=== PATIENT | male | born 1940 | race Caucasian/White ===

== ENCOUNTER 2019-04-21 06:14 | Outpatient (CLI) | payer MEDICARE, BC ==
[2019-04-21] VITALS (15 sets, daily range): BP systolic 138–205; BP diastolic 74–103; PULSE 61–93; TEMP 98
[~2019-04-21] VITALS: Ht 180.3 cm; Wt 73.2 kg
--- NOTE | 2019-04-21 06:48 | NUR ---
Pt daughter with pt this am.Pt bp 180/103,taken twice by this nurse.Per daughter report she has his am blood pressure medications with pt,reports she was unsure to give him am meds due to she wasnt sure if he was able to take a drink of water.Water provided so he may take his am bp meds per request.
[2019-04-21] MEDS ORDERED: ASPIRIN 81M81 MG/TA2 PO (06:50)
[2019-04-21] MEDS ORDERED: ATIVAN 0.50.5 MG/TAB PO (06:51)
[2019-04-21] MEDS ORDERED: LOPRESSOR 225 MG/TAB PO (06:51)
[2019-04-21] MEDS ORDERED: CATAPRES 0.1MG0.1 MG PO (06:51)
[2019-04-21] MEDS ORDERED: PRAVACHOL 20MG20 MG PO (06:52)
[2019-04-21] MEDS ORDERED: IMDUR 30MG30 MG/TAB PO (06:52)
--- NOTE | 2019-04-21 07:02 | NUR ---
Reported to Dr Knapp pt took his metoprolol and clonidine after arrival,reported bp observed by this nurse.
--- NOTE | 2019-04-21 07:50 | NUR ---
Pt to procedure,report to Randell<Rn.
--- NOTE | 2019-04-21 07:53 | NUR ---
Clarified per Dr Knapp request with pt daughter again drug allergies.Per daughter,patient has no drug allergies.
--- NOTE | 2019-04-21 08:25 | NUR ---
ALL MEDICATIONS GIVEN VORB WITH MD. SEE MERGE FOR ALL MEDICATION ADMIN TIMES. SEE MERGE FOR ALL RASS ASSESSMENTS DURING AND POST PROCEDURE.
--- NOTE | 2019-04-21 09:11 | NUR ---
Pt returned from procedure,report from Ap Mejias.
--- NOTE | 2019-04-21 11:41 | NUR ---
Discharge instructions given to pt.pt verbalizes understanding.INT removed,catheter tip intact.
--- NOTE | 2019-04-21 12:14 | NUR ---
Pt fell in room at 1145.Pt was sitting at side of bed,alert and orientated x 3,respirations even and unlabored prior to fall.Pt daughter assisting pt to put on shoes.This nurse instructed pt to sit and I will return to assist pt to toilet.This nurse left room.Per pt daughter report she stepped away from pt and he got up towards toilet.Noise heard and this nurse entereed room immediately.Pt sitting on floor.vital signs as follows, bp 179/84, 98% on room air,hr 93,repsirations 20.Dr Knapp called at 1147,instructed by Dr Knapp to assist pt back to bed.Pt assisted x 2,gaitbeld used back to bed.Pt walks independently normally with assit of walking stick.per pt daughter report 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 obvious after fall.Pt has skin tear in right elbo and forarm,small,cleansed and tegadrem applied.Bandaid appliend to right hand,small abraision observed.Pt also has lip with small amount of blood at site.
--- NOTE | 2019-04-21 12:20 | NUR ---
Pt assisted by this nurse with urinating.Pt stands steady,urinal used and patient back to bed after void.
--- NOTE | 2019-04-21 13:15 | NUR ---
Dr Knapp came and seen pt.OK to discharge home per Dr Knapp.Discharge instructions reviewed again, Pt daughter verbalizes understanding.Pt ambulated with one assist.Pt escorted out by this nurse via wheelchair.
== END 2019-04-21 13:47 | disposition home or self-care (01) ==
LOC: COL.CAR 06:14
DX: S32.010A Wedge compression fracture of first lumbar vertebra, initial encounter for closed fracture (principal); I11.0 Hypertensive heart disease with heart failure; I50.9 Heart failure, unspecified; Z79.82 Long term (current) use of aspirin; Z87.891 Personal history of nicotine dependence
CPT/HCPCS: J2250; J3010; J7120

== ENCOUNTER 2020-03-03 07:33 | Inpatient (IN) | payer MEDICARE, BC ==
[~2020-03-03] VITALS: Ht 180.3 cm; Wt 70.9 kg
[~2020-03-03 07:33] MED LIST: ASPIRIN 81M81 MG/TA2 PO; ATIVAN 0.50.5 MG/TAB PO; CATAPRES 0.1MG0.1 MG PO; IMDUR 30MG30 MG/TAB PO; LOPRESSOR 225 MG/TAB PO; PRAVACHOL 20MG20 MG PO
[2020-03-03 08:18] LABS: BASO # 0.1 (0.0-0.2); BASO % 0.8 % (0.0-2.0); EOS # 0.2 (0.0-0.7); EOS % 2.3 % (0-4.0); GRAN # 5.7 (1.4-6.5); GRAN % 75.6 % (42.2-75.2); HEMATOCRIT 41.3 % (42.0-52.0); HEMOGLOBIN 13.9 g/dl (13.5-18.0); LYMPH % 13.2 % (20.0-51.0); MEAN CELL VOLUME 93 fl (80.0-100.0); MEAN CORPUSCULAR HEMOGLOBIN 31 pg (27.0-31.0); MEAN CORPUSCULAR HGB CONC 34 g/dl (33.0-37.0); MEAN PLATELET VOLUME 8.5 fl (7.4-10.4); MONO # 0.6 (0.1-0.6); MONO % 7.7 % (1.7-9.3); PLATELET COUNT 193 K/mm3 (130-400); RED BLOOD COUNT 4.44 M/mm3 (4.20-5.60); REDCELL DISTRIBUTION WIDTH-CV 13.7 % (11.5-14.5)
[2020-03-03 08:19] LABS: INR 1.1 (0.8-3.0); PROTHROMBIN TIME 12.1 SECONDS (9.7-12.8)
[2020-03-03 08:23] LABS: BILIRUBIN,TOTAL 0.9 mg/dL (0.0-1.0); CALCIUM 8.8 mg/dL (8.4-10.2); CREATININE, serum 0.59 (0.66-1.25); TOTAL PROTEIN 7.8 gm/dL (6.4-8.2)
[2020-03-03] MEDS ORDERED: MIRALAX PA17 GM/Dose PO (09:15)
[2020-03-03] MEDS ORDERED: XANAX 0.5MG0.5 MG PO (09:16)
--- NOTE | 2020-03-03 10:25 | NUR ---
PATIENT ARRIVED TO ROOM 324 VIA CART FROM ED. PATIENT SETTELED INTO ROOM AND ORIENTED.
[2020-03-03 11:35] VITALS: BP 171/75; PULSE 77; TEMP 99.3
--- NOTE | 2020-03-03 12:19 | NUR ---
PATIENT ADMISSION ASSESSMENT COMPLETE. SEE ASSESSMENT B. PATIENT IS A&OX4 BUT CAN BE FORGETFUL. POSITIVE PEDAL PULSES EQUAL BILATERALLY. CAP REFILL <3 SECONDS. CMS INTACT. 2+ PITTING-EDEMA TO BLE. 3+ PITTING-EDEMA TO FEET BILATERALLY. LEFT LEG SHORTENED AND EXTERNALLY ROTATED. THIGH HIGH NAVIN HOSE APPLIED TO RLE. SCD'S APPLIED TO BLE. IV FLUIDS INFUSING TO RIGHT AC IV VIA PUMP. CALL LIGHT WITHIN REACH. BED ALARM ON. NO NEEDS AT THIS TIME.
[2020-03-03 15:44] VITALS: BP 199/92; PULSE 84; TEMP 99.2
--- NOTE | 2020-03-03 18:39 | NUR ---
ICE PACK PLACED TO LEFT HIP. NAVIN HOSE TO RLE. SCD'S TO BLE. CALL LIGHT WITHIN REACH. BED ALARM ON. PATIENT DENIES NEEDS AT THIS TIME. IV PAIN MEDICATIONS GIVEN NEEDED THROUGHOUT MY SHIFT. WILL REPORT OFF TO ONCOMING NURSE.
--- NOTE | 2020-03-03 19:00 | NUR ---
Received report from CHLOE Hoyt. Pt currently sitting up in bed and has his call light within reach, and his bed is in lowest position.
[2020-03-03 19:05] VITALS: BP 169/91; PULSE 88; TEMP 98.8
--- NOTE | 2020-03-03 23:16 | NUR ---
Pt curretnly sleeping in bed. Pt has called a few times to use his urinal. Pt talked with his daughter on the phone before he went to sleep. I asked if he needed something for pain. He stated that he was ok at this time and would call out if he needed something. I let him know that I would be checking on him during the night to see if he needed anything. Pt has his call light within reach and his bed is in lowest position and his alarm is on .
[2020-03-03 23:59] VITALS: BP 165/86; PULSE 88; TEMP 98.8
[2020-03-04] VITALS (12 sets, daily range): BP systolic 116–190; BP diastolic 67–93; PULSE 72–98; TEMP 97–98.5
[2020-03-04 06:06] LABS: BASO # 0.1 (0.0-0.2); BASO % 0.8 % (0.0-2.0); EOS # 0.2 (0.0-0.7); EOS % 1.8 % (0-4.0); GRAN % 78.6 % (42.2-75.2); LYMPH # 1.2 (1.2-3.4); LYMPH % 11.8 % (20.0-51.0); MEAN CELL VOLUME 93 fl (80.0-100.0); MEAN CORPUSCULAR HGB CONC 33 g/dl (33.0-37.0); MEAN PLATELET VOLUME 9.2 fl (7.4-10.4); MONO # 0.7 (0.1-0.6); MONO % 6.7 % (1.7-9.3); PLATELET COUNT 149 K/mm3 (130-400); RED BLOOD COUNT 3.83 M/mm3 (4.20-5.60); REDCELL DISTRIBUTION WIDTH-CV 13.8 % (11.5-14.5)
[2020-03-04 06:08] LABS: HEMATOCRIT 35.7 % (42.0-52.0); HEMOGLOBIN 11.9 g/dl (13.5-18.0); MEAN CORPUSCULAR HEMOGLOBIN 31 pg (27.0-31.0)
[2020-03-04 06:20] LABS: CALCIUM 8.3 mg/dL (8.4-10.2); CREATININE, serum 0.58 (0.66-1.25); POTASSIUM 3.8 mmol/L (3.4-5.0)
--- NOTE | 2020-03-04 07:29 | NUR ---
Lying in bed in supine position with eyes open. Patient is alert but confused on location, thought he was in [place], and date. Denies pain at this time. Bilat 2+ lower extremity edema noted. Bruising noted to bilat upper extremities. Patient is aware he will be getting his hip fixed today. Denies any additional needs at this time.
--- NOTE | 2020-03-04 09:58 | NUR ---
Contacted patient daughter Jenn and reviewed consent. Jenn gives verbal over the phone permission for procedure today to this nurse and domingo Daniels RN. Reviewed visitor policy with Jenn at this time. Denies additional concerns or questions.
--- NOTE | 2020-03-04 10:33 | NUR ---
Initial visit; Patient thanked Instrument And Controls Technician for looking in on him and offering God's blessings.
--- NOTE | 2020-03-04 10:39 | NUR ---
Medication Aid met with the patient to complete initial intake. The patient lives alone in [place]. The patient has a walker, walking stick, and cane. He is independent with ADLs. Per EMR the patient's PCP is PRANAY Lomeli. The patient states that his PCP is Dr. Garcia in [place]. The patient does not have advanced directives in the EMR but states they are complete and designate his daughter, Jenn Dupont # [phone]. Due to the patient's left hip fracture the patient will likely be needing post acute rehab. CORINA contacted Jenn to discuss Medicare.gov's list of facilites. The first choice is [facility], second choice is [facility], and third choice is [facility] [place]. The patient was agreeable to these choices. CORINA faxed referrals. Will continue to monitor.
--- NOTE | 2020-03-04 11:12 | NUR ---
Lying in bed with eyes closed. Respirations even and unlabored. No signs or symptoms of discomfort noted at this time.
--- NOTE | 2020-03-04 12:00 | NUR ---
Rhina from [facility] reports they can accept the patient.
--- NOTE | 2020-03-04 13:54 | NUR ---
Patient to surgery via bed at this time.
--- NOTE | 2020-03-04 15:49 | NUR ---
Radio Director contacted Nidhi with [facility]. Nidhi states they can take the patient with some conditions. Nidhi states the patient's PCP is on medical leave and she will have to find a physician to follow the patient. Nidhi states that the medication list has to remain relatively the same as the one this SW sent in the referral. They do keep some medications in stock but if there is a medication prescribed they do not have, they cannot accept. CORINA contacted the patient's daughter, Jenn to provide an update. Jenn would like to make [facility] first choice. Will continue to follow.
--- NOTE | 2020-03-04 18:10 | NUR ---
Patient returns to room via bed from PACU. Patient is alert, confused on location and date as he was prior to surgery. Jenn, patient's daughter here with the patient. Discussed plan of care with the patient. Dressing to left hip CDI. Arnett patent to dependent drainage with clear yellow urine. Denies pain at this time. Is able to move lower extremities some, more feeling in right versus the left. Denies additional needs at this time.
--- NOTE | 2020-03-04 20:08 | NUR ---
Report was given by CHLOE Boudreaux. Pt currently sitting up in bed and watching television. Pt did remember me from last night. Pt stated that he is having no pain right now.
[2020-03-05] VITALS (9 sets, daily range): BP systolic 157–196; BP diastolic 68–96; PULSE 87–99; TEMP 97.7–98.7
--- NOTE | 2020-03-05 01:30 | NUR ---
Pt has been very confused during the night. Pt keeps thinking that he is at home and we are near his kitchen. Pt pulled his IV out earlier in the shift. Pt had a new IV placed in his right forearm. Pt tolerated well. Pt has a 20G in right forearm which currently has NS fluids infusing at this time. Pt has his call light within reach. Pt has not slept at all during the night.
--- NOTE | 2020-03-05 06:29 | NUR ---
Pt did complain of pain earlier. Pt was given pain medication at this time. Pt has been confused all night. Pt has tried bed exiting twice this morning. He stated that he really needed to go to the [facility] to get something. He also stated that he was in [place]. Pt has no slept at all during the night. Pt has his mcarthur in place draining yellow clear urine. Pt has his call light wtihin reach and his bed is in lowest position.
--- NOTE | 2020-03-05 06:50 | NUR ---
Lying in bed with eyes open. Alert and oriented but then confused at same time. Denies pain at this time, does have some soreness in left hip. Dressing to left hip CDI. Bilat LE 2+ edema noted. Arnett to dependent drainage draining clear yellow urine. Patient denies needs at this time.
[2020-03-05 07:19] LABS: BASO % 0.1 % (0.0-2.0); LYMPH # 0.4 (1.2-3.4); LYMPH % 6.3 % (20.0-51.0); MEAN CELL VOLUME 93 fl (80.0-100.0); MEAN CORPUSCULAR HGB CONC 33 g/dl (33.0-37.0); MEAN PLATELET VOLUME 9.8 fl (7.4-10.4); MONO # 0.5 (0.1-0.6); MONO % 7.3 % (1.7-9.3); PLATELET COUNT 139 K/mm3 (130-400); RED BLOOD COUNT 2.87 M/mm3 (4.20-5.60); REDCELL DISTRIBUTION WIDTH-CV 13.5 % (11.5-14.5)
[2020-03-05 07:20] LABS: HEMATOCRIT 26.7 % (42.0-52.0); HEMOGLOBIN 8.9 g/dl (13.5-18.0); MEAN CORPUSCULAR HEMOGLOBIN 31 pg (27.0-31.0)
[2020-03-05 07:22] LABS: CALCIUM 8.3 mg/dL (8.4-10.2); CREATININE, serum 0.5 (0.66-1.25); POTASSIUM 3.9 mmol/L (3.4-5.0)
--- NOTE | 2020-03-05 07:39 | NUR ---
Spoke with patient regarding pain and working with PT today. Patient would like pain pill to get ahead of the pain. Elizabeth administered as prescribed.
--- NOTE | 2020-03-05 08:12 | NUR ---
Foam bulky dressing removed from left hip. Edges well approximated, no redness/swelling/discharge noted, small amount of bruising. [place] intact. Aquacel dressing applied. Patient sitting up in bed drinking coffee and watching TV at this time. Denies additional needs.
--- NOTE | 2020-03-05 09:43 | NUR ---
Vehicle Safety Inspector contacted Nidhi to update on the preference and thanked her for considering the referral. SW faxed updates to Rhina at [facility] and to Piotr at [facility]. Will continue to monitor.
--- NOTE | 2020-03-05 10:17 | NUR ---
Sitting up in recliner watching TV. Denies pain or needs at this time.
--- NOTE | 2020-03-05 10:25 | NUR ---
Sitting up in chair watching TV. Ask patient if he feels need to void at this time and patient says "not yet". Patient says that he would like to wait a little bit and then try to use commode to have BM but not right at this time. Explain that we will check back with him in a little bit. Remains confused and needs reoriented. Denies pain or needs at this time.
--- NOTE | 2020-03-05 11:08 | NUR ---
Rhina from [facility] reports that they recieved the updates and were concerned about the patient's sodium levels and they would like to see them trend up before admittance. SW collaborated the above information with the patient's nurse.
--- NOTE | 2020-03-05 13:29 | NUR ---
Attempt to get patient to urinate. Patient attempts to use urinal, denies need at this time to urinate. Explain to the patient importance of getting him to urinate. Patient requests to give it an additional 45 minutes to see if he can go. Explain that if he is not able to go in that time we will need to perform a bladder scan and then possibly reinsert the catheter. Patient verbalizes understanding. Sitting up in chair. Says that he sees a duck in the corner of the room. Assured patient that there is no duck in his room. Reoriented patient to where he is and why he is in the hospital. Patient says that some of it is coming back to him. Denies additional needs or concerns at this time.
--- NOTE | 2020-03-05 14:10 | NUR ---
Patient not able to void still. Perform bladder scan and scan shows 157mL of urine in bladder. Dr. Nava updated and orders received. Provided 250mL bolus of NS per Dr. Nava orders at this time, then IV rate increased to 100mL/hr.
--- NOTE | 2020-03-05 15:44 | NUR ---
Patient sitting up in chair. Remains confused and requires reorientation multiple times. Patient explains that he wants to leave to go home to do some stuff then he will come back. Explain that he is not able to leave the hospital at this time and explained that we needed to provide rehab services to get him stronger before he is able to go home on his own. Patient explains that he understands and says that he knows that he gets confused at times as well. Reassurance provided to patient. Patient denies pain at this time or any further needs.
--- NOTE | 2020-03-05 17:40 | NUR ---
Patient daughter, Jenn, here and updated on patient status and plan of care at this time. Patient remains confused and requires reorientation. Denies pain. Daughter agrees to try not to give pain medication to see if that may be cause of some of the confusion patient is having. Patient denies needs at this time.
--- NOTE | 2020-03-05 21:11 | NUR ---
Patient blood pressure noted to be 173/89. HS medications given including blood pressure medications. Rechecked blood pressure and it was 196/82. TRISHA Dykes notified and ordered Hydralazine 10mg IV. Administered. Blood pressure rechecked and its 160/68. Will continue to monitor blood pressures.
[2020-03-06] VITALS (7 sets, daily range): BP systolic 127–186; BP diastolic 60–83; PULSE 77–104; TEMP 97.9–98.5
--- NOTE | 2020-03-06 04:46 | NUR ---
Patient has been restless the majority of the night. Continues to be confused, but is easily reoriented. Patient attempts to sit up on the side of the bed, but states things like, "I'm looking for my glasses, cough drops, etc." No pain medication given. Aquacel to left hip is CDI. Skin surrounding aquacel is slightly red and a little warm to touch. Patient has been incontinent of urine, but has also used the urinal at times. Continues on the 1000ml free water restriction. Sodium is 126 this evening. Patient continues to have high blood pressures, and PRN hydralazine is administered for this. IVF conitnue to right forearm. Refuses SCDs. Will continue to monitor patient.
[2020-03-06 07:12] LABS: CREATININE, serum 0.43 (0.66-1.25); POTASSIUM 3.3 mmol/L (3.4-5.0)
[2020-03-06 07:30] LABS: BASO % 0.1 % (0.0-2.0); EOS % 0.2 % (0-4.0); GRAN # 6.8 (1.4-6.5); GRAN % 69.9 % (42.2-75.2); LYMPH # 1.7 (1.2-3.4); LYMPH % 17.2 % (20.0-51.0); MEAN CELL VOLUME 91 fl (80.0-100.0); MEAN CORPUSCULAR HGB CONC 34 g/dl (33.0-37.0); MEAN PLATELET VOLUME 10.1 fl (7.4-10.4); MONO # 1.2 (0.1-0.6); MONO % 12.1 % (1.7-9.3); PLATELET COUNT 145 K/mm3 (130-400); RED BLOOD COUNT 2.56 M/mm3 (4.20-5.60); REDCELL DISTRIBUTION WIDTH-CV 13.5 % (11.5-14.5)
[2020-03-06 07:33] LABS: HEMATOCRIT 23.4 % (42.0-52.0); HEMOGLOBIN 7.9 g/dl (13.5-18.0); MEAN CORPUSCULAR HEMOGLOBIN 31 pg (27.0-31.0)
--- NOTE | 2020-03-06 08:00 | NUR ---
Pleasantly confused. Denies pain. Aquacell dressing to left hip CDI. Free water restriction maintained.
--- NOTE | 2020-03-06 10:30 | NUR ---
Transferred to bedside commode with walker and two staff assist. Took steps fairly well with instruction.
--- NOTE | 2020-03-06 11:45 | NUR ---
Medicated with Zofran for c/o upset stomach.
--- NOTE | 2020-03-06 18:00 | NUR ---
Complained of abdomen feeling full. Drinking broth. Voiding per urinal.
[2020-03-06 18:20] LABS: HEMOGLOBIN 8.1 g/dl (13.5-18.0)
--- NOTE | 2020-03-07 03:56 | NUR ---
Patient was pretty restless throughout the night until about 0200 when he was complaining of pain to his hips and his heels. Heels floated on pillows. PRN pain medication administered and this was effective. Patient has slept well after this. Patient continues to be confused, but is easily reoriented. States he thinks he should go to bed, but he is already in bed. Continent of urine this shift. Aquacel is clean, dry, and intact. +2 edema noted to bilateral lower extremities. Noted to have a cough that produces clear sputum. Patient encouraged to continue to cough the sputum up. Patient transfered with one assist from staff to the commode and a walker this shift.
[2020-03-07 03:57] VITALS: BP 168/77; PULSE 85; TEMP 98.4
[2020-03-07 06:41] LABS: BASO % 0.1 % (0.0-2.0); EOS # 0.1 (0.0-0.7); EOS % 1.5 % (0-4.0); GRAN # 4.2 (1.4-6.5); GRAN % 62.2 % (42.2-75.2); LYMPH # 1.5 (1.2-3.4); MEAN CELL VOLUME 94 fl (80.0-100.0); MEAN CORPUSCULAR HGB CONC 34 g/dl (33.0-37.0); MEAN PLATELET VOLUME 9.4 fl (7.4-10.4); MONO # 0.9 (0.1-0.6); MONO % 13.6 % (1.7-9.3); PLATELET COUNT 170 K/mm3 (130-400); RED BLOOD COUNT 2.35 M/mm3 (4.20-5.60); REDCELL DISTRIBUTION WIDTH-CV 14.2 % (11.5-14.5)
[2020-03-07 06:48] LABS: CALCIUM 8.1 mg/dL (8.4-10.2); CREATININE, serum 0.48 (0.66-1.25); POTASSIUM 3.4 mmol/L (3.4-5.0)
[2020-03-07 07:02] LABS: HEMATOCRIT 22.1 % (42.0-52.0); HEMOGLOBIN 7.4 g/dl (13.5-18.0); MEAN CORPUSCULAR HEMOGLOBIN 31 pg (27.0-31.0)
[2020-03-07 08:00] VITALS: BP 126/60; PULSE 113; TEMP 98.1
[2020-03-07 11:34] VITALS: BP 117/50; PULSE 80; TEMP 98
[2020-03-07 15:22] VITALS: BP 145/50; PULSE 86; TEMP 98.7
--- NOTE | 2020-03-07 18:00 | NUR ---
More alert today. Denied need for pain med. Minimal complaints of hip pain with transfers. Improved ambulation with walker. Legs edematous. Poor appetite.
[2020-03-07 19:26] VITALS: BP 154/58; PULSE 110; TEMP 98.8
[2020-03-08 00:13] VITALS: BP 164/70; PULSE 86; TEMP 98.8
[2020-03-08 04:00] VITALS: BP 178/74; PULSE 80; TEMP 98.9
--- NOTE | 2020-03-08 04:18 | NUR ---
Patient has rested much better tonight than the last 2 previous nights. Denies pain. Continues to have edema to bilateral legs. Patient requires one assist from staff to use the restroom. Ambulates with walker. Steady gait noted. Voiding well. Patient takes medication with gatorade. Ate yogurt for a bedtime snack. Intermittent confusion noted, but easily redirected by staff. Denies any further needs. Will continue to monitor.
--- NOTE | 2020-03-08 08:00 | NUR ---
PATIENT IS ORIENTED X2 BUT DISPLAYS OCCATIONAL CONFUSION/FORGETFULNESS. PATIENT C/O PAIN IN LLE AND REQUESTING SOMETHING FOR PAIN. GAVE PRN NORCO, ONE TAB WITH AM MEDS. BREAKFAST TRAY AT BEDSIDE. LEFT HIP DRESSING IS CD&I WITH AQUACEL. TEDS TO BLE. SCD'S CURRENTLY OFF. POSITIVE PEDAL PULSES TO BLE. HEAD TO TOE ASSESSMENT COMPLETE. AM MEDS GIVEN. BED ALARM ON. CALL LIGHT IN REACH.
[2020-03-08 08:28] VITALS: BP 125/54; PULSE 91; TEMP 98.3
--- NOTE | 2020-03-08 09:39 | NUR ---
Behavioral Health Specialist faxed udpates to Rhina at [facility].
[2020-03-08 11:39] VITALS: BP 142/58; PULSE 74; TEMP 98
[2020-03-08 11:40] LABS: CALCIUM 7.9 mg/dL (8.4-10.2); CREATININE, serum 0.52 (0.66-1.25); POTASSIUM 3.2 mmol/L (3.4-5.0)
[2020-03-08 11:58] LABS: MEAN CELL VOLUME 94 fl (80.0-100.0); MEAN CORPUSCULAR HGB CONC 34 g/dl (33.0-37.0); MEAN PLATELET VOLUME 9.6 fl (7.4-10.4); PLATELET COUNT 227 K/mm3 (130-400); RED BLOOD COUNT 2.28 M/mm3 (4.20-5.60); REDCELL DISTRIBUTION WIDTH-CV 14.2 % (11.5-14.5)
[2020-03-08 12:32] LABS: BAND 9 % (0-10); LYMPHOCYTE 14 % (20.0-51.0); METAMYELOCYTE 1 % (0-0); NEUTROPHILS 72 % (42.0-75.2); PLATELET ESTIMATE NORMAL (NORMAL)
[2020-03-08 13:03] LABS: HEMATOCRIT 21.5 % (42.0-52.0); HEMOGLOBIN 7.2 g/dl (13.5-18.0); MEAN CORPUSCULAR HEMOGLOBIN 32 pg (27.0-31.0)
[2020-03-08 15:36] VITALS: BP 131/57; PULSE 84; TEMP 98.7
[2020-03-08 19:30] VITALS: BP 155/77; PULSE 100; TEMP 98.6
--- NOTE | 2020-03-08 19:52 | NUR ---
Received report from CHLOE Betancur. Pt sitting up in bed and has his call light ScanNano.
[2020-03-09 00:01] VITALS: BP 164/74; PULSE 78; TEMP 98.4
[2020-03-09 04:11] VITALS: BP 165/71; PULSE 79; TEMP 98.2
--- NOTE | 2020-03-09 04:48 | NUR ---
Pt is currently sleeping in bed. Pt has ambulated to the restroom a couple of times during the night. Pt was able to void everytime. When helping pt with help cleaning himslef after using the bathroom when cleaned pt seemed to have mucus when wiping. Pt is currently sleeping in bed, he has his call light within reach and his bed is in lowest position and his alarm is on.
--- NOTE | 2020-03-09 07:12 | NUR ---
Reported off to CHLOE Almazan. Pt sitting up in bed eating his breakfast. Pt has his call light within reach and his bed is in lowest position.
[2020-03-09 07:22] LABS: BASO % 0.4 % (0.0-2.0); EOS # 0.3 (0.0-0.7); EOS % 3.8 % (0-4.0); GRAN # 5.4 (1.4-6.5); GRAN % 63.3 % (42.2-75.2); LYMPH # 1.8 (1.2-3.4); LYMPH % 20.6 % (20.0-51.0); MEAN CELL VOLUME 94 fl (80.0-100.0); MEAN CORPUSCULAR HGB CONC 33 g/dl (33.0-37.0); MEAN PLATELET VOLUME 9.4 fl (7.4-10.4); MONO % 11.2 % (1.7-9.3); PLATELET COUNT 249 K/mm3 (130-400); RED BLOOD COUNT 2.52 M/mm3 (4.20-5.60); REDCELL DISTRIBUTION WIDTH-CV 14.6 % (11.5-14.5)
[2020-03-09 07:31] LABS: HEMATOCRIT 23.7 % (42.0-52.0); HEMOGLOBIN 7.8 g/dl (13.5-18.0); MEAN CORPUSCULAR HEMOGLOBIN 31 pg (27.0-31.0)
[2020-03-09 07:37] LABS: CALCIUM 8.1 mg/dL (8.4-10.2); CREATININE, serum 0.47 (0.66-1.25); POTASSIUM 3.2 mmol/L (3.4-5.0)
[2020-03-09 07:52] VITALS: BP 120/55; PULSE 102; TEMP 98.5
--- NOTE | 2020-03-09 08:00 | NUR ---
Patient resting in bedside recliner at this time. Patient is alert and oriented, answers questions appropriately. Patient is moving with walker and 1x assist, is continent of bowel and bladder. Patient denies pain but reports that his stomach feels bloated and he has not had a bowel movement today; reported this to hospitalist. Patient denies further needs, call light within reach.
--- NOTE | 2020-03-09 09:22 | NUR ---
User Interface Designer faxed updates to Rhina at [facility] and to [facility].
--- NOTE | 2020-03-09 09:38 | NUR ---
Director Of Retail contacted the patient's daughter, Jenn to provide an update.
--- NOTE | 2020-03-09 12:19 | NUR ---
First visit from the pump oiler. No needs right now.
[2020-03-09 12:20] VITALS: BP 125/62; PULSE 73; TEMP 98.4
[2020-03-09] MEDS ORDERED: XARELTO10 MG PO (14:34)
[2020-03-09] MEDS ORDERED: ASPI325T6 PO (14:35)
[2020-03-09] MEDS ORDERED: SENNA-S 50 MG-81 TAB PO (14:36)
[2020-03-09] MEDS ORDERED: DUO-KAPS1 CAP PO (14:36)
[2020-03-09] MEDS ORDERED: LASIX 20MG TABL20 MG PO (14:36)
[2020-03-09] MEDS ORDERED: VITAMIN C500 MG PO (14:36)
[2020-03-09] MEDS ORDERED: DULCOLAX S10 MG/SUPP RC (14:36)
[2020-03-09] MEDS ORDERED: OSCAL 500 TAB500 MG PO (14:37)
[2020-03-09] MEDS ORDERED: NORCO 325 MG-51 TAB PO (14:39)
--- NOTE | 2020-03-09 14:57 | NUR ---
The patient is to discharge to [facility] today, 03/09 for post acute rehab. [facility] can transport at 1530 or 1545. CORINA informed the team, the patient, and the patient's daughter, Jenn. All were in agreeance. CORINA presented the IM form to Jenn. She understood and gave CORINA permission to sign on her behalf. A copy was provided to the patient and the original was placed in the chart. CORINA faxed discharge orders. There are no additional needs at this time.
--- NOTE | 2020-03-09 15:30 | NUR ---
Report called to nursing at recieving facility. Discussed discharge medications, follow up appointments, instructions for dressing change, and general patient information. Dressing on patient's left hip was changed immdeiately prior to discharge. Sealed dressing was included with patient's discharge packet. Patient belongings gathered and patient escorted to visitor entrance via wheelchair where [facility]
== END 2020-03-09 15:30 | DRG 470 ==
LOC: COL.ER 07:33 → SURG 08:13
PROVIDERS: Emergency Medicine; Orthopaedic Surgery; Physician Assistant; ADMIT Student in an Organized Health Care Education/Training Program
PROC: 0SRS0J9 Replacement of Left Hip Joint, Femoral Surface with Synthetic Substitute, Cemented, Open Approach (ICD-10-PCS; principal; 2020-03-04 13:00)
DX: S72.042A Displaced fracture of base of neck of left femur, initial encounter for closed fracture (principal); S22.31XA Fracture of one rib, right side, initial encounter for closed fracture; E22.2 Syndrome of inappropriate secretion of antidiuretic hormone; I10 Essential (primary) hypertension; E78.5 Hyperlipidemia, unspecified; F41.9 Anxiety disorder, unspecified; I25.10 Atherosclerotic heart disease of native coronary artery without angina pectoris; I27.20 Pulmonary hypertension, unspecified; D64.9 Anemia, unspecified; K59.00 Constipation, unspecified; Z20.828 Contact with and (suspected) exposure to other viral communicable diseases; Z95.5 Presence of coronary angioplasty implant and graft; Z87.891 Personal history of nicotine dependence; W19.XXXA Unspecified fall, initial encounter
CPT/HCPCS: 99222-AI; 99231-AI; 99232-AI; 99233-AI; 99239; A4314; A9284; C1713; C1776; J0171; J0360; J0690; J1100; J1940; J2250; J2270; J2370; J2405; J2704; J2795; J3010; J7030